=== PATIENT | male | born 1970 | race Caucasian/White ===

== ENCOUNTER 2018-11-09 12:13 | Emergency (ER) | payer OTHER ==
[~2018-11-09] VITALS: Ht 188 cm; Wt 79.8 kg
[2018-11-09 12:36] VITALS: Ht 188 cm; Wt 79.8 kg
[2018-11-09 14:47] VITALS: BP 132/90
== END 2018-11-09 14:47 | disposition home or self-care (01) ==
LOC: ED 12:13
DX: S53.401A Unspecified sprain of right elbow, initial encounter (principal); Z88.0 Allergy status to penicillin; X58.XXXA Exposure to other specified factors, initial encounter; Y93.72 Activity, wrestling; Y92.89 Other specified places as the place of occurrence of the external cause; Y99.8 Other external cause status